=== PATIENT | female | born 1970 | race Caucasian/White ===

== ENCOUNTER 2019-03-10 11:41 | Emergency (ER) | payer BC, SELFPAY ==
[2019-03-10 11:45] VITALS: BP 132/95; PULSE 66; RESP 20; TEMP 36.4; O2SAT 94
--- NOTE | 2019-03-10 12:02 | W.ED.GENAD ---
Discharge Plan Disposition Patient Disposition: HOME Condition: Good Discharge Details Chief Complaint: RespSymp Clinical Impression: Bronchitis, Flu-like symptoms Primary Care Provider: Ericka Cadet ED Provider: Lyndsey Brooks Home Meds and New Rx's Prescriptions: New prednisone 50 mg tablet 50 mg PO DAILY Qty: 5 RF: 0 doxycycline hyclate 100 mg capsule 100 mg PO BID Qty: 14 RF: 0 Continued ibuprofen 200 MG tablet 800 mg PO PRN PRNRF: 0 ranitidine HCl [Zantac] 150 MG tablet 150 mg PO PRN PRNRF: 0 acetaminophen [Tylenol] 325 MG tablet 650 mg PO Q6H PRN PRNQty: 30 RF: 0 Discharge Instructions Instructions: Albuterol (By breathing), Acute Bronchitis (ED) Additional Instructions: Encourage water intake. Tylenol and/or ibuprofen as needed for discomfort. You may use your albuterol inhaler 2 puffs every 4-6 hours as needed for shortness of breath. Please take the prednisone once daily as prescribed. Please take the antibiotics twice daily as prescribed. Even if symptoms improve, please take the entire course. Your initial illness is likely associated with influenza. If you develop difficulty breathing, shortness of breath, inability stay hydrated or other new/worsening symptom please seek care urgently once again. Otherwise, please follow-up with primary care next week for reevaluation. Referrals: Ericka Cadet MD [Primary Care Provider] - Discharge Data Discharge Date/Time-TO BE ENTERED AT DEPARTURE: 03/10/19 13:27 Medical Decision Making Patient is a pleasant 49-year-old female, coming by her with similar symptoms, with chief complaint of URI. She reports that for the past 1 week, she has had cough, body aches, fever/chills. Reports that she has not had a fever in the past few days but has noted increase in her cough and shortness of breath. No history of underlying pulmonary illness. Denies any chest pain. No recent travel. States that she has had some diarrhea with 3 loose stools today. No nausea or vomiting. No rash. No headache. Children have been sick with similar illness as well. Did not receive her flu shot. On exam, patient is resting comfortable and appears nontoxic. Oxygen slightly low at 94% on room air, vital signs otherwise within normal limits. Patient has expiratory coarse wheezing scattered throughout all lung garza. I am concerned for underlying bronchitis or pneumonia associated with likely recent influenza. As patient is out of the window to treat, will not obtain flu testing. Will give nebulizer and reassess the patient. Plan for x-rays of the chest. Reexamined [facility] patient after nebulizer treatment, sounds much improved although her cough and symptoms persist. CXR reviewed by radiologist: The heart is not enlarged. The lungs are clear and well expanded. No pleural effusion seen. Mediastinal contours appear intact. IMPRESSION: Normal chest Discussed these findings with the patient. She has what is most consistent a history of flu with newer onset of bronchitis. As her cough has increased, she ahs had worsening symptoms, plan to treat for both infectious source as well as inflammatory, Will give albuterol inhaler, steroids and abx. Discussed this plan with the patient. I have asked that hse f/u with PCP next week for reevalution. She was given return precautions. All questions and concerns were addressed, she is in agreement with this plan HPI General Mode of arrival: ambulatory. Date/Time Provider Initiated Documentation: 03/10/19 12:02. Limitations to Documentation: no limitations. Information obtained by: patient, family () and RN notes reviewed. History of Present Illness 49 year old F presents to the emergency department with the chief complaint of flu like illness, cough, SOB, described as mild, with intensity rated at 1. Quality is described as aching (with cough), Patient started experiencing this week(s) (1) and it has been constant. No relieving factors improve symptom(s), No exacerbating factors reported . Patient notes cough, fever/chills and shortness of breath (new over past few days); denies chest pain, diaphoresis, headaches, loss of appetite, nausea/vomiting, rash and weakness. Patient did receive the following treatments prior to arrival, none Related Data Home Medications Medication Instructions Recorded Confirmed ibuprofen 800 mg PO PRN PRN 04/29/17 03/10/19 ranitidine HCl [Zantac] 150 mg PO PRN PRN 04/29/17 03/10/19 acetaminophen [Tylenol] 650 mg PO Q6H PRN PRN #30 tab 04/30/17 03/10/19 doxycycline hyclate 100 mg PO BID #14 cap 03/10/19 prednisone 50 mg PO DAILY #5 tab 03/10/19 Previous Rx's Medication Instructions Recorded acetaminophen [Tylenol] 650 mg PO Q6H PRN PRN #30 tab 04/30/17 doxycycline hyclate 100 mg PO BID #14 cap 03/10/19 prednisone 50 mg PO DAILY #5 tab 03/10/19 Allergies Allergy/AdvReac Type Severity Reaction Status Date / Time morphine AdvReac Intermediate Nausea Unverified 03/10/19 11:48 General Stated Complaint: RespSymp JAMAR: 4 Review of Systems Constitutional Constitutional: Reports as per HPI and Denies headache(s) Eyes Eyes: Reports as per HPI, Denies eye discharge and Denies irritation ENT Ears, Nose, Mouth, and Throat: Reports as per HPI and Denies headache(s) Cardiovascular Cardiovascular: Reports as per HPI, Denies chest pain and Reports dyspnea (with cough) Respiratory Respiratory: Reports as per HPI, Reports change in phlegm color, Reports chest congestion, Reports cough, Denies hemoptysis, Reports pain on inspiration, Denies pain with cough, Reports dyspnea (with cough) and Denies wheezing Gastrointestinal Gastrointestinal: Reports as per HPI, Denies abdominal pain, Reports change in bowel habits, Denies nausea and Denies vomiting Integumentary/Breasts Skin/Breast: Reports as per HPI and Denies rash Neurologic Neurologic: Reports as per HPI and Denies headache(s) Allergic/Immunologic Allergic/Immunologic: Denies wheezing PFSH Surgical History Arthroplasty of knee Ligation of fallopian tube Social History Smoking/Tobacco Use Status: Former Tobacco Use Alcohol Intake: never Drug use: Never Substance use type: does not use Do you feel safe at home: Yes Do you feel safe in your relationship?: Yes History History Para 2 Hx # Term Pregnancies Multiple births Hx # Pregnancies Ectopic pregnancies AB induced Hx Number of Living Children AB spontaneous Exam Const General: cooperative, healthy appearing, comfortable, no acute distress, well developed and well groomed Nutritional Appearance: well nourished and overweight Orientation: alert and awake HENMT Head: normal to inspection, normocephalic and atraumatic Ears: hearing grossly normal bilaterally, external ears normal and TM's normal bilaterally General nose exam: external nose normal and nares normal Face and sinus: normal facial exam, sinuses nontender and face symmetric Mouth: oral mucosae normal, lip normal, tongue normal, oropharynx normal and moist mucous membranes Teeth and gingiva: dentition normal Throat: posterior oropharynx normal, tonsils normal and uvula midline Eyes General: appearance normal, both eyes and all related structures Neck Neck: normal visual inspection, full ROM, no lymphadenopathy and no meningeal signs Resp Effort & Inspection: normal respiratory effort, able to speak in complete sentences and no respiratory distress Auscultation: not clear to auscultation bilaterally, no rales, no rhonchi and wheezes expiratory wheezes and scattered wheezes Cardio Rate: regular rate Rhythm: regular rhythm Heart Sounds: S1 normal and S2 normal Skin General skin exam: no rashes or lesions noted Neuro General: alert and awake Cognition: normal cognition Speech: speech normal Gait: normal gait Psych Appearance: grossly normal and well kempt Mental Status: mental status grossly normal Speech and Movement: speech and movement normal Course Vital Signs Vital signs: Vital Signs Temperature 36.4 C L 03/10/19 11:45 Pulse 66 03/10/19 11:45 Respiratory Rate 03/10/19 11:45 Blood Pressure 132/95 H 03/10/19 11:45 Pulse Oximetry 94 L 03/10/19 11:45 Temperature 36.4 C L 03/10/19 11:45 Temperature Source Skin 03/10/19 11:45 Pulse 66 03/10/19 11:45 Respiratory Rate 03/10/19 11:45 Respiratory Effort 03/10/19 11:49 Respiratory Depth Normal 03/10/19 11:49 Blood Pressure 132/95 H 03/10/19 11:45 Blood Pressure Position Sitting 03/10/19 11:45 Pulse Oximetry 94 L 03/10/19 11:45 Oxygen Delivery Method Room Air 03/10/19 11:45 Oxygen Flow Rate 0 03/10/19 11:45 Pain Level 1 03/10/19 11:45
[2019-03-10] MEDS: Albuterol/Ipratropium 3 ML UPD VIAL UPD (12:38)
--- NOTE | 2019-03-10 13:01 | DI.RAD_ITS ---
EXAM: XR CHEST 2V PA LATERAL XR CHEST 2V PA LATERAL CLINICAL HISTORY: cough, SOB cough, SOB TECHNIQUE: 2D digital imaging was performed. COMPARISON: No exams were available for comparison FINDINGS: The heart is not enlarged. The lungs are clear and well expanded. No pleural effusion seen. Mediastin al contours appear intact. IMPRESSION: Normal chest
[2019-03-10 13:13] VITALS: BP 124/88; PULSE 94; RESP 16; TEMP 35.7; O2SAT 94
[2019-03-10] MEDS: Albuterol HFA 8 GM 60 PUFF INH IH (13:17)
[2019-03-10] MEDS: Inhaler, Assist Device 1 EACH MC (13:17)
== END 2019-03-10 13:27 | disposition home or self-care (01) ==
PROVIDERS: Emergency Provider Physician Assistant
DX: J20.9 Acute bronchitis, unspecified (principal); J11.1 Influenza due to unidentified influenza virus with other respiratory manifestations; Z87.891 Personal history of nicotine dependence
CPT/HCPCS: 94640; 99283; 71046; 99284; J7620

== ENCOUNTER 2019-07-02 11:24 | Emergency (ER) | payer BC, SELFPAY ==
[2019-07-02 11:29] VITALS: BP 141/99; PULSE 86; RESP 20; TEMP 36.4; O2SAT 99
--- NOTE | 2019-07-02 11:30 | DI.RAD_ITS ---
EXAM: XR FOOT LT COMPLETE CLINICAL HISTORY: medial foot pain. TECHNIQUE: 2D digital imaging was performed. COMPARISON: No exams were available for comparison FINDINGS: BONES: No acute fracture is present. No bony destructive lesion is seen. JOINTS: No dislocation present. Mild 1st MTP joint degenerative changes. SOFT TISSUE: Normal. IMPRESSION: Unremarkable radiographs of the left foot. DATA REPOSITORY: RADIATION DOSE DELIVERED:
--- NOTE | 2019-07-02 11:40 | W.ED.GENAD ---
Discharge Plan Disposition Patient Disposition: HOME Condition: Stable Discharge Details Chief Complaint: Orthopedic Clinical Impression: Left foot pain Primary Care Provider: Carri Tilley ED Provider: Jered Gray Home Meds and New Rx's Prescriptions: Continued ibuprofen 200 MG tablet 800 mg PO PRN PRNRF: 0 acetaminophen [Tylenol] 325 MG tablet 650 mg PO Q6H PRN PRNQty: 30 RF: 0 Discharge Instructions Instructions: Leg Pain (ED) Additional Instructions: We will have you follow-up in orthopedic clinic for recheck. The office number is [phone] you have been placed on their follow-up list. Call them for an appointment time. Please wear the flat soled postop shoe with crutches if needed for pain-free walking. Tylenol, ice, ibuprofen as needed for pain. Return to the emergency department for any acute concern. Medical Decision Making 49-year-old female presents from home with complaint of intermittent left medial pain over months time that seems to be worse with increased weightbearing/standing/ambulation as well as with the use of flip-flops. Referred for x-ray to rule out bone spur or occult fracture. There is a corticated defect in the medial aspect of the navicular, may be within the joint space with the medial cuneiform and noted to possibly represent atypical healing fracture. We will refer the patient to orthopedics for recheck/follow-up. She will be made nonweightbearing and immobilized today. HPI General Mode of arrival: ambulatory. Date/Time Provider Initiated Documentation: 07/02/19 11:27. Limitations to Documentation: no limitations. Information obtained by: patient. History of Present Illness 49 year old F presents to the emergency department with the chief complaint of Left foot medial pain intermittently for months, worse w prolonged standing, described as moderate, Quality is described as dull, and is localized to the left and lower extremity. Patient reports no radiation. Patient started experiencing this week(s) and it has been intermittent. Rest improves symptom(s), Movement worsens symptoms . Patient notes no other symptoms.; denies weakness. Patient did receive the following treatments prior to arrival, none Related Data Home Medications Medication Instructions Recorded Confirmed ibuprofen 800 mg PO PRN PRN 04/29/17 07/02/19 acetaminophen [Tylenol] 650 mg PO Q6H PRN PRN #30 tab 04/30/17 07/02/19 Previous Rx's Medication Instructions Recorded acetaminophen [Tylenol] 650 mg PO Q6H PRN PRN #30 tab 04/30/17 Allergies Allergy/AdvReac Type Severity Reaction Status Date / Time morphine AdvReac Intermediate Nausea Unverified 07/02/19 11:31 General Stated Complaint: Orthopedic JAMAR: 4 Review of Systems Narrative: No fall or injury. Chronic pain is been intermittent and seems to be worse with increased ambulation and the use of flat soled shoes like flip-flops. No other complaint. 4 systems reviewed and negative. [facility] Social History Smoking/Tobacco Use Status: Former Tobacco Use Alcohol Intake: never Drug use: Never Substance use type: does not use Do you feel safe at home: Yes Do you feel safe in your relationship?: Yes History History Para 2 Hx # Term Pregnancies Multiple births Hx # Pregnancies Ectopic pregnancies AB induced Hx Number of Living Children AB spontaneous Exam Narrative Exam Narrative: GEN: awake, alert, oriented 3. Pleasant, well groomed, interactive. HEAD: Normocephalic, atraumatic ENT: Mucous membranes moist, oropharynx unremarkable, External ear exam unremarkable EYES: PERRL, EOMI EXT: Full ROM, no edema, no rash. Prominent left medial foot protuberance is tender to the touch. Normal motor and sensory exam with capillary refill less than 2 seconds. Neuro: Grossly normal neurologic exam, conversant, interactive. Psych: Speech fluent, thoughts congruent, affect normal Course Vital Signs Vital signs: Vital Signs Temperature 36.4 C L 07/02/19 11:29 Pulse 86 07/02/19 11:29 Respiratory Rate 20 07/02/19 11:29 Blood Pressure 141/99 H 07/02/19 11:29 Pulse Oximetry 99 07/02/19 11:29 Temperature 36.4 C L 07/02/19 11:29 Temperature Source Tympanic 07/02/19 11:29 Pulse 86 07/02/19 11:29 Respiratory Rate 20 07/02/19 11:29 Respiratory Effort Non-Labored 07/02/19 11:33 Blood Pressure 141/99 H 07/02/19 11:29 Blood Pressure Position Sitting 07/02/19 11:29 Pulse Oximetry 99 07/02/19 11:29 Oxygen Delivery Method Room Air 07/02/19 11:29 Oxygen Flow Rate 0 07/02/19 11:29 Pain Level 6 07/02/19 11:29
--- NOTE | 2019-07-02 12:02 | DI.VRAD_ITS ---
PROCEDURE INFORMATION: Exam: XR Left Foot Complete Exam date and time: 07/02/2019 11:55 AM Age: 49 years old Clinical indication: Injury or trauma; Injury history: Medial foot pain; Initial encounter; Swelling (edema); Left TECHNIQUE: Imaging protocol: XR Left foot. Views: 3 or more views. COMPARISON: No relevant prior studies available. FINDINGS: Bones/joints: Well corticated defect in the medial aspect of the navicular. This may be within the joint space with the medial cuneiform. This could represent atypical healing fracture. Soft tissues: Soft tissue swelling medially IMPRESSION: Well corticated defect in the medial aspect of the navicular. This may be within the joint space with the medial cuneiform. This could represent atypical healing fracture. Dictated and Authenticated by: Jim Barros MD. Ordering:QUINN Lawton MD
== END 2019-07-02 12:57 | disposition home or self-care (01) ==
PROVIDERS: Emergency Provider Emergency Medicine; PCP Nurse Practitioner Family
DX: M25.572 Pain in left ankle and joints of left foot (principal); R93.6 Abnormal findings on diagnostic imaging of limbs
CPT/HCPCS: 99283; 73630; E0114

== ENCOUNTER 2020-12-27 01:33 | Outpatient (CLI) | payer BC, SELFPAY ==
--- NOTE | 2020-12-27 15:20 | DI.MAMMO_ITS ---
Exam(s) MAMMO SCREENING EXAM: MAMMO SCREENING CLINICAL HISTORY: SCREENING MAMMO FOR BREAST CANCER Z12.31. TECHNIQUE: Bilateral full field digital CC and MLO mammographic images were obtained with 3D tomosyn thesis and utilizing computer aided detection (CAD). COMPARISON: None. This is a baseline mammogram on this 50-year-old patient FINDINGS: There are no CAD designations. There are no spiculated masses nor malignant-appearing microcalcification breast. Benign-appearing l ymph node in the upper-outer quadrant of the right breast is noted. There is no significant architectural distortion nor skin thickening-retraction. IMPRESSION: No radiographic evidence of malignancy. BI-RADS Category 1 - Negative Breast Density - Category B - Scattered areas of fibroglandular density Breast density Category C or D implies that the patient has dense breast tissue. Dense breast tissue can make it harder to find cancer on a mammogram. Dense breast tissue is also associated with an incr eased risk of breast cancer. This information about the result of the mammogram report was provided to the patient to raise their awareness. Use this report when you speak with the patient about their risks for breast cancer, which includes their family history. At that time, you may recommend additional screening tests (Ultrasoun d or MRI) as these tests may add significant information. A negative radiographic report should not delay biopsy if a dominant or clinically suspicious mass is present. Up to ten percent of cancers are not identified on mammography. A negative report may reinforce clinical impression. Adenosis and dense breasts may obscure an underlying neoplasm. False positive reports average 6 to 10%. Patient will receive a letter notifying them of these results.
== END 2020-12-27 01:53 ==
PROVIDERS: PCP Nurse Practitioner Family; Visit Provider Nurse Practitioner Family
DX: Z12.31 Encounter for screening mammogram for malignant neoplasm of breast (principal)
CPT/HCPCS: 77063; 77067

== ENCOUNTER 2021-02-07 12:00 | Outpatient (REF) | payer BC, SELFPAY ==
--- NOTE | 2021-02-07 08:45 | PAPFT_PTH ---
PATIENT: Eva Taylor LOC: [facility] U#:[id number] AGE/SX: 51/F ROOM: RE02/07/[address]: Carri Tilley : 1970 BED: DIS: 02/07/2021 SPEC #: [id number] RECD: 02/07/21 17:07 STATUS: LEYDA REQ #: [id number] SHRUTHI: 02/07/21 08:[address]: Carri Tilley DEPT: [facility] Cytology RECD BY: Janeth Masters Tissues: 1 - CX/ENDOCX FOR PAP SMEARS Procedures: PAP THIN PREP/UVM Screening HPV DNA PROBE Comments: [id number]
[2021-02-07 14:54] LABS: ALT 56 U/L (14-59); AST 31 U/L (15-37); Anion Gap 6.2 mmol/L (3-11); BUN 15 mg/dL (7-18); CO2 29.8 mmol/L (21.0-32.0); CREATININE 1.1 mg/dL (0.55-1.02); Calculated LDL 178 mg/dL (<100); Chloride 105 mmol/L (98-107); Cholesterol 254 mg/dL (<200); Estimated GFR 52.36 (mL/min/1.73m2); Glucose 84 mg/dL (74-106); HDL Cholesterol 51 mg/dL (40-60); Hemoglobin A1C 5.7 % (<5.7); Potassium 4.1 mmol/L (3.5-5.1); Sodium 141 mmol/L (136-145); Triglyceride 127 mg/dL (<150)
== END 2021-02-07 12:01 | disposition home or self-care (01) ==
LOC: NCHCN 12:00
PROVIDERS: PCP Nurse Practitioner Family; Visit Provider Nurse Practitioner Family
DX: E66.9 Obesity, unspecified (principal); Z13.220 Encounter for screening for lipoid disorders; R94.4 Abnormal results of kidney function studies; Z00.00 Encounter for general adult medical examination without abnormal findings; Z12.4 Encounter for screening for malignant neoplasm of cervix; Z11.51 Encounter for screening for human papillomavirus (HPV)
CPT/HCPCS: 80048; 80061; 88142; 83036; 84450; 84460; 87624

== ENCOUNTER 2022-03-03 09:58 | Day surgery (SDC) | payer BC, SELFPAY ==
[2022-03-03 10:05] VITALS: BP 117/90; PULSE 66; RESP 16; TEMP 36.1; O2SAT 98
--- NOTE | 2022-03-03 10:34 | W.ANESPRE ---
General Info Date of Service Date Performed: 03/03/22 Height: 5 ft 2 in Weight: 85.2 kg Body Mass Index (BMI): 34.3 Surgical Procedure: Operation Date: 03/03/22 11:20 Proposed Procedure Side Surgeon p Danita Flores MD Meds Allergies and Home Medications Allergies Allergy/AdvReac Type Severity Reaction Status Date / Time morphine AdvReac Intermediate Nausea Verified 03/03/22 10:17 Home Medication Medication Instructions Recorded acetaminophen 325 mg tablet 650 mg PO Q6H PRN PRN #30 tabs 04/30/17 (Tylenol) bisacodyl 5 mg tablet,delayed 5 mg PO ONCE #4 tabs 02/13/22 release (Dulcolax (bisacodyl)) polyethylene glycol 3350 17 17 g PO ONCE #238 grams 02/13/22 gram/dose oral powder Current Visit Medications: Current Medications Generic Name Dose Route Start Last Admin Trade Name Freq PRN Reason Stop Dose Admin Ringer's Solution 1,000 mls @ 80 mls/hr 03/03/22 06:00 IV 03/30/22 23:59 INFUSION MILI IV Miscellaneous Supplies 1 each 03/03/22 06:00 Iv Access IV 03/30/22 23:59 DIRECTED MILI Sodium Chloride 0 ml 03/03/22 06:00 Normal Saline Flush 10 Ml Syr IV 03/30/22 23:59 PRN PRN Sodium Chloride 0 ml 03/03/22 06:00 Normal Saline 10 Ml Vial IJ 03/30/22 23:59 DIRECTED PRN Sterile Water 0 ml 03/03/22 06:00 Water,Injection,Sterile 10 Ml Vial IJ 03/30/22 23:59 DIRECTED PRN PFSH Active Problems Active Problems: Problem Status Onset Code Community acquired pneumonia J18.9 Perirectal abscess K61.1 Bronchitis J40 Flu-like symptoms R68.89 Right carpal tunnel syndrome G56.01 Screening for colon cancer Z12.11 Medical History Medical History History of prediabetes Obesity (BMI 30-39.9) Surgical History Surgical History (Updated 03/03/22 @ 10:16 by Isabel Murray RN) Hx of arthroscopic knee surgery 05/04/2017 ACL, meniscus, MCL repair Ligation of fallopian tube Tobacco Smoking/Tobacco Use Status: Former Tobacco Use Alcohol Alcohol Intake: current Alcohol intake frequency: a few times a month Substance Use Substance use: Never Substance use type: does not use Prental History History Para 2 Hx # Term Pregnancies Multiple births Hx # Pregnancies Ectopic pregnancies AB induced Hx Number of Living Children AB spontaneous Vital Signs and Lab Results Vital Signs Most Recent Vital Signs in EMR: Most Recent Vital Signs Temp Pulse Resp BP Pulse Ox 36.1 C L 66 16 117/90 98 03/03/22 10:05 03/03/22 10:05 03/03/22 10:05 03/03/22 10:05 03/03/22 10:05 Lab Results Blood Type / Crossmatch: No Data to Display Complete Blood Count: No Data to Display Complete Metabolic Panel: No Data to Display Liver Function Panel: No Data to Display Coagulation Panel: No Data to Display Cardiac Panel: No Data to Display Arterial Blood Gas: No Data to Display Venous Blood Gas: No Data to Display Pancreas Panel: No Data to Display Thyroid Panel: No Data to Display Infectious Disease: No Data to Display Blood Cultures: No Data to Display Toxicology Panel: No Data to Display Panel: No Data to Display Anesthesia Assessment and Plan Anesthesia History Personal History: No History of Anesthesia Complications Family History: No Family History of Anesthesia Complications Exercise Tolerance Exercise Tolerance: Metabolic Equivalents>4 Pertinent Negatives Pertinent Negatives: No Symptoms of GERD (Reports minimal symptoms since losing weight), No Major Cardiovascular Symptoms or Complaints and No Major Pulmonary Symptoms or Complaints Cardiac & Pulmonary Exam Cardiac Exam: Normal S1/S2 Heart Sounds Pulmonary Exam: Clear Bilateral Breath Sounds Implantable Cardiac Device Does patient have a Pacemaker or an ICD?: No Airway Exam Known Difficult Airway: No Mallampati Class: 2 Mouth Opening: Normal (> 3cm) Thyromental Distance: Greater than 3 cm Neck Range of Motion: Full ROM Neck Circumference: Normal Teeth Condition: Normal Dentition ASA Classification ASA Score: ASA 2 Emergency Case?: No NPO Status NPO Status: NPO Clears >2 hours, Solids >8 hours Status Status: Negative HCG Anesthesia Plan Resuscitation Status: Full Code Anesthesia Technique: General Anesthesia Airway Planned: Natural Airway Monitors Used: Standard Monitors
[2022-03-03 10:38] VITALS: BMI 34.3
[2022-03-03] MEDS: Lactated Ringers 1,000 ML 80 ML IV (10:38)
--- NOTE | 2022-03-03 11:09 | W.COLOREPORT ---
Date of service: 03/03/22 Time of Service: 11:45 Colonoscopy Report Procedure Description: Procedures performed: 1. Colonoscopy Preoperative diagnosis: Screening colonoscopy Postoperative diagnosis: Normal terminal ileum, normal colon, grade 1 internal hemorrhoids Surgeon: Dc Flores Anesthesia: Verónica Indication for procedure: 52-year-old woman without any symptoms, no prior colonoscopy, no family history of colon cancer, due for screening. Findings: Normal terminal ileum.? Normal Colon.? Grade 1 internal hemorrhoids. Surveillance/follow-up recommendations: 10 years Complications: None Blood loss: Minimal Prep: Excellent Procedure in detail: Written consent was obtained from the patient who was in agreement with the risks, benefits and indications of the procedure.? We went to the endoscopy suite and laid the patient in left lateral decubitus position.? Anesthesia was administered which was tolerated well.? A timeout was performed and when we are all in agreement we began the procedure. Digital rectal exam and visual examination was performed and within normal limits.? A well?lubricated colonoscope was advanced without difficulty all the way to the cecum identified by the ileocecal valve, and triangular folds and appendiceal orifice.? Terminal ileum was normal.? It was then slowly withdrawn.?? Retroflexion was performed in the rectum.? The findings/interventions are noted above. The scope was then removed and the patient tolerated the procedure well and was then taken back to the PACU in hemodynamically stable condition.
[2022-03-03 12:13] VITALS: BP 96/73; PULSE 58; RESP 16; TEMP 36.7; O2SAT 100
--- NOTE | 2022-03-03 12:24 | W.ANESPOSTOP ---
Postoperative Evaluation Date, Time and Location Date Performed: 03/03/22 Time Performed: 12:25 Patient Location: Day Surgery Unit Vital Signs Most Recent Imported Vital Signs: Most Recent Vital Signs Temp Pulse Resp BP Pulse Ox 36.7 C 58 L 16 96/73 L 100 03/03/22 12:13 03/03/22 12:13 03/03/22 12:13 03/03/22 12:13 03/03/22 12:13 Pain Score Most Recent Pain Score: Most Recent Pain Score Pain Level 0 03/03/22 12:13 Assessment Mental Status: Awake (Alert & Oriented to Patient Baseline) Airway and Respiratory Function: Patent airway with normal (patient baseline) respiratory exam Cardiovascular Function: Hemodynamically Stable Hydration Status: Adequately Hydrated Nausea & Vomiting: No Nausea or Vomiting Pain: Pt. Denies Any Pain Peripheral Nerve Block: Patient did not receive a nerve block
[2022-03-03 12:38] VITALS: BP 117/90; PULSE 117; RESP 16; TEMP 36.5; O2SAT 99
== END 2022-03-03 12:55 | disposition home or self-care (01) ==
PROVIDERS: PCP Nurse Practitioner Family; Visit Provider Student in an Organized Health Care Education/Training Program
PROC: 0DJD8ZZ Inspection of Lower Intestinal Tract, Via Natural or Artificial Opening Endoscopic (ICD-10-PCS; CPT 45378; principal; 2022-03-03 11:15)
DX: Z12.11 Encounter for screening for malignant neoplasm of colon (principal); K64.0 First degree hemorrhoids
CPT/HCPCS: 45378; 81025

== ENCOUNTER 2022-04-16 02:10 | Outpatient (CLI) | payer BC, SELFPAY ==
--- NOTE | 2022-04-16 13:10 | DI.MAMMO_ITS ---
Exam(s) MAMMO SCREENING EXAM: MAMMO SCREENING CLINICAL HISTORY: SCREENING FOR BREAST CANCER Z12.9 TECHNIQUE: Mammograms were interpreted according to the usual protocol including computer analysis w [employer] CAD system, tomosynthesis and C-view imaging. COMPARISON: 2022 FINDINGS: The breasts are composed of scattered fibroglandular densities, Breast Density category B. No suspicious masses or suspicious microcalcifications are seen. No skin thickening or abnormal axillary lymph nodes are seen. There has been no significant change from prior exams. IMPRESSION: BI-RADS Category 1, Negative mammogram Yearly screening mammography is recommended. Breast Density - Category B, scattered fibroglandular densities. A negative radiographic report should not delay biopsy if a dominant or clinically suspicious mass is present. Up to ten percent of cancers are not identified on mammography. A negative report may reinforce clinical impression. Adenosis and dense breasts may obscure an underlying neoplasm. False positive reports average 6 to 10%. Patient will receive a letter notifying them of these results.
== END 2022-04-16 02:30 ==
LOC: DI 02:10
PROVIDERS: PCP Nurse Practitioner Family; Visit Provider Nurse Practitioner Family
DX: Z12.31 Encounter for screening mammogram for malignant neoplasm of breast (principal); R92.8 Other abnormal and inconclusive findings on diagnostic imaging of breast
CPT/HCPCS: 77063; 77067

== ENCOUNTER 2022-09-10 08:42 | Outpatient (REF) | payer BC, SELFPAY ==
[2022-09-10 15:03] LABS: HCT 41.3 % (36.0-46.0); HGB 13.6 g/dL (11.2-15.7); MCH 29.1 pg (27.0-33.0); MCHC 32.9 % (32.0-36.0); MCV 88 fL (80-95); MPV 10.9 fL (8.0-11.0); Platelet Count 235 10^3/uL (130-400); RBC 4.68 10^6/uL (3.93-5.22); RDW 12.8 % (11.7-14.6); RDW-SD 41.4 fL; WBC 3.91 10^3/uL (4.4-10.8)
[2022-09-10 15:35] LABS: ALT 53 U/L (14-59); AST 19 U/L (15-37); Albumin 3.7 g/dL (3.4-5.0); Alkaline Phosphatase 94 U/L (46-116); Anion Gap 9.2 mmol/L (3-11); BUN 20 mg/dL (7-18); Bilirubin, Total 0.4 mg/dL (0.2-1.0); CO2 25.8 mmol/L (21.0-32.0); CREATININE 0.8 mg/dL (0.55-1.02); Calcium 8.9 mg/dL (8.5-10.1); Calculated LDL 172 mg/dL (<100); Chloride 107 mmol/L (98-107); Cholesterol 271 mg/dL (<200); Glucose 100 mg/dL (74-106); HDL Cholesterol 55 mg/dL (40-60); Potassium 4.7 mmol/L (3.5-5.1); Sodium 142 mmol/L (136-145); Total Protein 7.4 g/dL (6.4-8.2); Triglyceride 222 mg/dL (<150)
== END 2022-09-10 08:43 | disposition home or self-care (01) ==
LOC: NCHCN 08:42
PROVIDERS: PCP Nurse Practitioner Family; Visit Provider Nurse Practitioner Family
DX: R73.03 Prediabetes (principal); R94.4 Abnormal results of kidney function studies; Z13.220 Encounter for screening for lipoid disorders
CPT/HCPCS: 80053; 80061; 85027

== ENCOUNTER 2023-05-18 09:37 | Emergency (ER) | payer BC, SELFPAY ==
[2023-05-18 09:44] VITALS: BP 150/88; PULSE 90; RESP 18; TEMP 36.8; O2SAT 97
--- NOTE | 2023-05-18 10:07 | ED.GENADUL_ITS ---
Discharge Plan Disposition Patient Disposition: Home Condition: Stable Discharge Details Clinical Impression: Bilateral foot pain Primary Care Provider: Carri Tilley ED Provider: Cora Nichols Home Meds and New Rx's Prescriptions: No Action acetaminophen [Tylenol] 325 MG tablet 650 mg PO Q6H PRN PRNQty: 30 0RF Discharge Instructions Instructions: Plantar Fasciitis (ED), Plantar Fasciitis Exercises (ED) Additional Instructions: No evidence of bony abnormality on X-rays, This could be fallen arches or plantar fascitis. Please take Tylenol or Ibuprofen with food every 4-6 hours as needed for pain and swelling. Please have well-fitting sneakers, you may also try taping or other modalities. Ice bottom of your feet while sitting. Follow up with primary care provider in 7-10 days. Return to ED sooner if any worsening or concerns. Referrals: Carri Tilley [Primary Care Provider] - 5 days HPI General Mode of arrival: ambulatory . Date/Time Provider Initiated Documentation: 05/18/23 09:56 . Limitations to Documentation: no limitations . Information obtained by: patient, RN notes reviewed and old records reviewed . HPI Narrative: 53-year-old female presents to the ER with chief complaint of bilateral foot pain. She reports medial foot pain by her arches that occur after standing for prolonged periods of time. No significant injury known. She reports that when she is off her feet for a while it decreases. No swelling deformity. I did discuss possible differentials with her including plantar fasciitis and fallen arch. He does have pinpoint tenderness to palpation to the arches. Past medical history includes obesity, prediabetes and tubal ligation. Related Data Home Medications Medication Instructions Recorded Confirmed acetaminophen 325 mg tablet 650 mg (2 x 325 mg) PO Q6H PRN PRN 18 05/18/23 (Tylenol) #30 tabs Previous Rx's Medication Instructions Recorded acetaminophen 325 mg tablet 650 mg (2 x 325 mg) PO Q6H PRN PRN 04/30/17 (Tylenol) #30 tabs Allergies Allergy/AdvReac Type Severity Reaction Status Date / Time morphine AdvReac Intermediate Nausea Verified 03/03/22 10:17 General Stated Complaint: Orthopedic JAMAR: 4 Review of Systems All systems reviewed & are unremarkable except as noted in HPI and below Musculoskeletal Musculoskeletal: Reports as per HPI Exam Narrative Exam Narrative: Constitutional: Alert and oriented x3. Appears stated age. Normal body habitus. Head: Normocephalic, no trauma. Resp: Lungs clear to auscultation bilaterally, no wheezes, rales, or rhonchi. Abdomen: Soft, non-distended, Normoactive bowel sounds all 4 quads. Musculoskeletal: Unable to assess gait Skin: No suspicious rashes or lesions. Capillary refill less than 2 sec. Neurologic: Cranial nerves II-XII intact. Alert and oriented x 3. Motor: No deficits noted. Sensory: Intact bilaterally all 4 extremities. Hematologic/Lymphatic: No ecchymosis, no lymphadenopathy. Course Vital Signs Vital signs: Vital Signs Temperature 36.8 C 05/18/23 09:44 Pulse 90 05/18/23 09:44 Respiratory Rate 18 05/18/23 09:44 Blood Pressure 150/88 H 05/18/23 09:44 Pulse Oximetry 97 05/18/23 09:44 Temperature 36.8 C 05/18/23 09:44 Temperature Source Temporal Artery Scan 05/18/23 09:44 Pulse 90 05/18/23 09:44 Respiratory Rate 18 05/18/23 09:44 Blood Pressure 150/88 H 05/18/23 09:44 Pulse Oximetry 97 05/18/23 09:44 Oxygen Delivery Method Room Air 05/18/23 09:44 Oxygen Flow Rate 0 05/18/23 09:44 Medical Decision Making 53-year-old female presents to the ER with chief complaint of bilateral foot pain. She reports medial foot pain by her arches that occur after standing for prolonged periods of time. No significant injury known. She reports that when she is off her feet for a while it decreases. No swelling deformity. I did discuss possible differentials with her including plantar fasciitis and fallen arch. He does have pinpoint tenderness to palpation to the arches. Past medical history includes obesity, prediabetes and tubal ligation. XRays of bilateral feet, Differential diagnosis includes plantar fasciitis, fallen arches arthritis. X-rays are within normal limits, given discharge instructions and home care. Instructed to follow-up with PCP. This text was generated using [employer] dictation system, please disregard any oddities of phrase or misspellings. Imaging Data Radiologic Study: Imaging: X-Ray Radiologist's impression: EXAM: XR FOOT LT COMPLETE CLINICAL HISTORY: Pain. TECHNIQUE: 2D digital imaging was performed. COMPARISON: CR XR FOOT RT COMPLETE from 05/18/2023 FINDINGS: 3 views There is no evidence of fracture nor diastasis of the Lisfranc joint. Great toe metatarsophalangeal joint appears unremarkable as do the other articulations. Slightly prominent navicular tuberosity is noted but identical to the opposite side. There is a tiny inferior calcaneal spur. Bone density normal. No osseous lesions. No erosions. No pes planus. IMPRESSION: As above. No acute osseous findings in the left foot. Radiologic Study #2: Imaging: X-Ray Radiologist's impression: EXAM: XR FOOT RT COMPLETE CLINICAL HISTORY: Pain. TECHNIQUE: 2D digital imaging was performed. COMPARISON: CR,XR XR FOOT LT COMPLETE from 07/02/2019 FINDINGS: 3 views No evidence of acute fracture or diastasis of the Lisfranc joint. Bone density normal. Great toe metatarsophalangeal joint appears normal. Prominent navicular tuberosity is similar to the opposite side. No osseous lesions. No erosions. No pes planus. No inferior calcaneal spur. IMPRESSION: No acute osseous findings in the right foot. Quality:SDOH Health Related Social Needs: No Data to Display PFSH All Active Problems (Updated 05/18/23 @ 11:14 by Cora Nichols NP) Bilateral foot pain (Acute) Community acquired pneumonia (Acute) Perirectal abscess (Acute) Bronchitis (Acute) Flu-like symptoms (Acute) Right carpal tunnel syndrome (Acute) Screening for colon cancer (Acute) Medical History Shingles Obesity (BMI 30-39.9) History of prediabetes Surgical History Hx of arthroscopic knee surgery 05/04/2017 ACL, meniscus, MCL repair Ligation of fallopian tube Social History Smoking/Tobacco Use Status: Former Tobacco Use Smoking risk assessment performed?: Yes Alcohol Intake: current Alcohol Intake frequency: a few times a month Drug use: Never Substance use type: does not use Current gender identity: female Do you feel safe at home: Yes Do you feel safe in your relationship?: Yes History History Para 2 Hx # Term Pregnancies Multiple births Hx # Pregnancies Ectopic pregnancies AB induced Hx Number of Living Children AB spontaneous
--- NOTE | 2023-05-18 10:15 | DI.RAD_ITS ---
Exam(s) XR FOOT RT COMPLETE EXAM: XR FOOT RT COMPLETE CLINICAL HISTORY: Pain. TECHNIQUE: 2D digital imaging was performed. COMPARISON: CR,XR XR FOOT LT COMPLETE from 07/02/2019 FINDINGS: 3 views No evidence of acute fracture or diastasis of the Lisfranc joint. Bone density normal. Great toe me tatarsophalangeal joint appears normal. Prominent navicular tuberosity is similar to the opposite si de. No osseous lesions. No erosions. No pes planus. No inferior calcaneal spur. IMPRESSION: No acute osseous findings in the right foot. DATA REPOSITORY: RADIATION DOSE DELIVERED:
--- NOTE | 2023-05-18 10:15 | DI.RAD_ITS ---
Exam(s) XR FOOT LT COMPLETE EXAM: XR FOOT LT COMPLETE CLINICAL HISTORY: Pain. TECHNIQUE: 2D digital imaging was performed. COMPARISON: CR XR FOOT RT COMPLETE from 05/18/2023 FINDINGS: 3 views There is no evidence of fracture nor diastasis of the Lisfranc joint. Great toe metatarsophalangeal joint appears unremarkable as do the other articulations. Slightly prominent navicular tuberosity is noted but identical to the opposite side. There is a tiny inferior calcaneal spur. Bone density no rmal. No osseous lesions. No erosions. No pes planus. IMPRESSION: As above. No acute osseous findings in the left foot. DATA REPOSITORY: RADIATION DOSE DELIVERED:
== END 2023-05-18 11:33 | disposition home or self-care (01) ==
PROVIDERS: Emergency Provider Registered Nurse Emergency; PCP Nurse Practitioner Family
DX: M79.671 Pain in right foot (principal); M79.672 Pain in left foot
CPT/HCPCS: 99283; 73630

== ENCOUNTER 2024-06-02 16:15 | Outpatient (REF) | payer BC, SELFPAY ==
[2024-06-02 16:27] LABS: HCT 43.3 % (36.0-46.0); HGB 14.1 g/dL (11.2-15.7); MCH 28.8 pg (27.0-33.0); MCHC 32.6 % (32.0-36.0); MCV 89 fL (80-95); MPV 10.8 fL (8.0-11.0); Platelet Count 257 10^3/uL (130-400); RBC 4.89 10^6/uL (3.93-5.22); RDW-SD 42.2 fL; WBC 5.14 10^3/uL (4.4-10.8)
[2024-06-02 16:42] LABS: Hemoglobin A1C 5.9 % (<5.7)
[2024-06-02 16:43] LABS: ALT 133 U/L (14-59); AST 37 U/L (15-37); Albumin 4.2 g/dL (3.4-5.0); Alkaline Phosphatase 109 U/L (46-116); BUN 25 mg/dL (7-18); Calcium 9.6 mg/dL (8.5-10.1); Calculated LDL 253 mg/dL (<100); Chloride 105 mmol/L (98-107); Cholesterol 348 mg/dL (<200); Estimated GFR 66.95 (mL/min/1.73m2); Glucose 107 mg/dL (74-106); HDL Cholesterol 64 mg/dL (>or=50); Potassium 4.6 mmol/L (3.5-5.1); Sodium 141 mmol/L (136-145); TSH (W/Ref FT4) 2.12 uIU/mL (0.36-3.74); Total Protein 7.7 g/dL (6.4-8.2); Triglyceride 157 mg/dL (<150)
== END 2024-06-02 16:16 | disposition home or self-care (01) ==
LOC: NCHCN 16:15
PROVIDERS: PCP Nurse Practitioner Family; Visit Provider Nurse Practitioner Family
DX: E66.9 Obesity, unspecified (principal)
CPT/HCPCS: 80053; 80061; 85027; 83036; 84443

== ENCOUNTER 2024-08-09 16:23 | Outpatient (REF) | payer BC, SELFPAY ==
[2024-08-09 16:51] LABS: ALT 54 U/L (14-59); AST 26 U/L (15-37); Albumin 4.3 g/dL (3.4-5.0); Alkaline Phosphatase 98 U/L (46-116); Anion Gap 9.5 mmol/L (3-11); BUN 20 mg/dL (7-18); Bilirubin, Total 0.8 mg/dL (0.2-1.0); CO2 25.5 mmol/L (21.0-32.0); Calcium 9.1 mg/dL (8.5-10.1); Calculated LDL 103 mg/dL (<100); Chloride 104 mmol/L (98-107); Cholesterol 181 mg/dL (<200); Estimated GFR 75.97 (mL/min/1.73m2); Glucose 86 mg/dL (74-106); HDL Cholesterol 53 mg/dL (>or=50); Potassium 4.2 mmol/L (3.5-5.1); Sodium 139 mmol/L (136-145); Total Protein 7.6 g/dL (6.4-8.2); Triglyceride 127 mg/dL (<150)
== END 2024-08-09 16:24 | disposition home or self-care (01) ==
LOC: NCHCN 16:23
PROVIDERS: PCP Nurse Practitioner Family; Visit Provider Nurse Practitioner Family
DX: E78.2 Mixed hyperlipidemia (principal)
CPT/HCPCS: 80053; 80061

== ENCOUNTER 2024-10-25 03:39 | Outpatient (CLI) | payer BC, SELFPAY ==
--- NOTE | 2024-10-25 12:15 | DI.MAMMO_ITS ---
Exam(s) MAMMO SCREENING EXAM: MAMMO SCREENING CLINICAL HISTORY: SCREENING MAMMO Z12.31 TECHNIQUE: Bilateral full field digital CC and MLO mammographic images were obtained with 3D tomosynthesis and utilizing computer aided detection (CAD). COMPARISON: Comparison is made with prior examinations. FINDINGS: Masses/Architectural Distortion: No suspicious masses or areas of architectural distortion are present. Microcalcifications: No suspicious pleomorphic-type are seen. Skin Thickening/Nipple Retraction: None. IMPRESSION: 1. No significant interval change with no specific features of malignancy noted. 2. Unless there is more urgent need, screening mammography is recommended, as per [place] [employer] guidelines. BI-RADS Category 1 - Negative Breast Density - Category B - There are scattered areas of fibroglandular density. Breast density Category C or D implies that the patient has dense breast tissue. Dense breast tissue can make it harder to find cancer on a mammogram. Dense breast tissue is also associated with an increased risk of breast cancer. This information about the result of the mammogram report was provided to the patient to raise their awareness. Use this report when you speak with the patient about their risks for breast cancer, which includes their family history. At that time, you may recommend additional screening tests (Ultrasound or MRI) as these tests may add significant information. A negative radiographic report should not delay biopsy if a dominant or clinically suspicious mass is present. Up to ten percent of cancers are not identified on mammography. A negative report may reinforce clinical impression. Adenosis and dense breasts may obscure an underlying neoplasm. False positive reports average 6 to 10%. Patient will receive a letter notifying them of these results.
== END 2024-10-25 03:59 ==
PROVIDERS: PCP Nurse Practitioner Family; Visit Provider Nurse Practitioner Family
DX: Z12.31 Encounter for screening mammogram for malignant neoplasm of breast (principal)
CPT/HCPCS: 77063; 77067